=== PATIENT | female | born 2005 | race Caucasian/White ===

== ENCOUNTER 2024-10-02 23:48 | Emergency (ER) | payer MEDICAID, SELFPAY ==
[2024-10-02 23:49] VITALS: BMI 19.7
[2024-10-03 00:05] VITALS: BP 118/70; PULSE 89; RESP 18; TEMP 36.8; O2SAT 99
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
[2024-10-03] MEDS: KETOROLAC INJ 60 MG/2 ML VIAL 30 MG IM (00:45)
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
[2024-10-03 03:49] VITALS: PULSE 75; RESP 18; O2SAT 98
== END 2024-10-03 03:49 | disposition home or self-care (01) ==
LOC: SERX 10-03 03:47
PROVIDERS: Emergency Provider Emergency Medicine; PCP Family Medicine
DX: S39.011A Strain of muscle, fascia and tendon of abdomen, initial encounter (principal); V09.9XXA Pedestrian injured in unspecified transport accident, initial encounter; M25.512 Pain in left shoulder
CPT/HCPCS: 71101; 96372; 99283; J1885